=== PATIENT | female | born 1960 | race Asian ===

== ENCOUNTER 2016-04-02 13:48 | Emergency (ER) | payer SELFPAY ==
--- NOTE | 2016-04-02 18:46 | REP ---
Cervical spine seven views: There are superimposed artifact from meter ring is in from clothing artifacts in the air. The patient did not speak Barbadian, could not remain quiescent during the filming process and could not remove the body of the clothing artifacts. There is degenerative disc disease at C 05/06 and C6-7. Vertebral body heights and alignment are normal. The facets are unremarkable. The prevertebral soft soft tissues are unremarkable. There are calcifications in the arytenoid cartilages. There is no listhesis on flexion or extension. There is no bony foraminal encroachment. Impression: C5-6 and C6-7 degenerative disc disease. Signed by Darrius Mendes MD 04/02/2016 06:37 P
--- NOTE | 2016-04-02 18:49 | REP ---
Bilateral shoulders: There are no comparisons. Right shoulder three views : There is no fracture or dislocation. Mineralization and joint spaces are normal. There are no calcifications or foreign bodies. Impression: Negative right shoulder Left shoulder three views : There is no fracture or dislocation. Mineralization and joint spaces are normal. There are no calcifications or foreign bodies. Impression: Negative left shoulder . Signed by Darrius Mendes MD 04/02/2016 06:41 P
--- NOTE | 2016-04-02 19:13 | EDDOCDS ---
Physician Documentation [facility] Name: Jovanni Koch Age: 55 yrs Sex: Female : 1960 Arrival Date: 04/02/2016 Time: 13:48 Bed PD Private MD: NO PRIMARY PHYSICIAN, . Disposition: 04/02/16 18:59 Discharged to Home/Self Care. Impression: Cervical disc disorder with radiculopathy - AFFECTING BILATERAL SHOULDERS; C5-C7. - Condition is Stable. - Discharge Instructions: Cervical Radiculopathy. - Prescriptions for Prednisone 20 mg Oral Tablet - take 2 tablets by ORAL route once daily for 4 days TAKE EARLIER IN THE DAY, WITH FOOD.; 8 tablet. Cyclobenzaprine 5 mg Oral Tablet - take 1 tablet by ORAL route at bedtime As needed; 10 tablet. - Medication Reconciliation, Local Pharmacy Hours form. - Follow up: Emergency Department; When: As needed; Reason: Worsening of conditions. Follow [facility]: [facility]; When: Call to arrange an appointment; Reason: Recheck today's complaints, Continuance of care, To establish care. - Problem is new. - Symptoms are unchanged. Historical: - Allergies: no known allergies; - Home Meds: 1. naproxen 500 mg Oral TbEC 1 tab as needed (Last dose: 03/30/2016) - PMHx: none; - PSHx: none; - Social history: Smoking status: Patient states former smoker of tobacco. Preferred Language: Icelandic. - Family history: Not pertinent. - : The pt / caregiver states he / she is not on anticoagulants. Home medication list is obtained from. - Exposure Risk Screening:: None identified. Vital Signs: 04/02 13:51 BP 108 / 76; Pulse 83; Resp 18 S; Temp 96.7; Pulse Ox 98% on R/A; Weight 60.33 kg / 133 gr2 lbs (R); Height 5 ft. 5 in. (165.10 cm) (R); Pain 8/10; 16:58 BP 125 / 85; Pulse 72; Resp 16; Pulse Ox 98% on R/A; Pain 10/10; kr3 19:11 BP 110 / 75; Pulse 80; Resp 16; Temp 97(O); Pulse Ox 98% on R/A; jf3 13:51 Body Mass Index 22.13 (60.33 kg, 165.10 cm) gr2 MDM: 17:38 Shoulder, Complete Ordered. EDMS 17:39 Spine, Cervical Ordered. EDMS 17:41 Financial registration complete. gjb 17:42 [facility] Payment Agreement was scanned into [employer] and attached to record. juan f Signatures: Dispatcher [employer] EDEvelina Wolff RN RN [facility] Clary Skinner PA-C PAPaulette dt4 Lopez Flores RN RN jf3 Karen Young The chart was reviewed and I authenticate all verbal orders and agree with the evaluation and treatment provided.Attachments: 17:42 [facility] Payment Agreement gjb MTDD
--- NOTE | 2016-04-02 19:13 | EDDOCDS ---
Nurse's Notes [facility] Name: Jovanni Koch Age: 55 yrs Sex: Female : 1960 Arrival Date: 04/02/2016 Time: 13:48 Bed PD Private MD: NO PRIMARY PHYSICIAN, . Diagnosis: Cervical disc disorder with radiculopathy-AFFECTING BILATERAL SHOULDERS; C5-C7 Presentation: 04/02 14:12 Presenting complaint: Child states: left shoulder pain going into arm and hand with cjh joint pain in left hand, has pain on both sides but left side is more, going on for two months. Was seen in [facility] for same on 24 of March and put on Naproxen but it's not helping. She also has a headache for same amount of time. This patient has no additional risk factors. Adult Sepsis Screening: The patient does not have new or worsening altered mentation. Patient's respiratory rate is less than 22. Systolic blood pressure is greater than 100. Patient has a qSOFA score of 0- Negative Sepsis Screen. Suicide/Homicide risk assessment- the patient denies having any suicidal and/or homicidal ideations and does not present with any other emotional, behavioral or mental health complaints. Status: Patient is not a environmental services coordinator or dependent. Transition of care: patient was not received from another setting of care. 14:12 Acuity: DIEUDONNE Level 3 [facility] 14:12 Method Of Arrival: Walkin/Carried/Asstd [facility] Triage Assessment: 14:17 Headache History: Other chronic headache. General: Appears in no apparent distress, cjh comfortable, Behavior is appropriate for age, cooperative. Pain: Location: head and left arm Pain currently is 9 out of 10 on a pain scale. Pain began two months Aggravated by arm hurts worse while sleeping, head doesn't hurt right at this time Also complains of no other associated symptoms. Pt Declines HIV testing. Neurological: No deficits noted. Level of Consciousness is awake, alert, Oriented to person, place, time, Facial symmetry appears normal, Facial symmetry: tongue is midline. Respiratory: Airway is patent Respiratory effort is even, unlabored, Respiratory pattern is regular, symmetrical. Historical: - Allergies: no known allergies; - Home Meds: 1. naproxen 500 mg Oral TbEC 1 tab as needed (Last dose: 03/30/2016) - PMHx: none; - PSHx: none; - Social history: Smoking status: Patient states former smoker of tobacco. Preferred Language: Kiswahili. - Family history: Not pertinent. - : The pt / caregiver states he / she is not on anticoagulants. Home medication list is obtained from. - Exposure Risk Screening:: None identified. Screenin:00 Screening information is obtained from the patient. Fall risk: No risks identified. kr3 Assistance ADL's: requires no assistance with activities of daily living. Abuse/DV Screen: The patient / caregiver reports he/she is: not in a situation that causes fear, pain or injury. Nutritional screening: No deficits noted. Advance Directives: Currently, there is no health care proxy. home support is adequate. Assessment: 16:59 Reassessment: Patient appears in no apparent distress at this time. Pain: Location: kr3 'all joints' Pain currently is 10 out of 10 on a pain scale. Neurological: Level of Consciousness is awake, alert, Gait is steady. 19:11 Pain: Location: left shoulder. Neurological: Level of Consciousness is awake, alert. jf3 Cardiovascular: Capillary refill < 3 seconds. Respiratory: Airway is patent Respiratory effort is even, unlabored, Respiratory pattern is regular, symmetrical. Derm: Skin is normal. Vital Signs: 13:51 BP 108 / 76; Pulse 83; Resp 18 S; Temp 96.7; Pulse Ox 98% on R/A; Weight 60.33 kg (R); gr2 Height 5 ft. 5 in. (165.10 cm) (R); Pain 8/10; 16:58 BP 125 / 85; Pulse 72; Resp 16; Pulse Ox 98% on R/A; Pain 10/10; kr3 19:11 BP 110 / 75; Pulse 80; Resp 16; Temp 97(O); Pulse Ox 98% on R/A; jf3 13:51 Body Mass Index 22.13 (60.33 kg, 165.10 cm) gr2 Vitals: 13:51 Log In Time: April 02, 2016 at 13:51. gr2 ED Course: 13:50 Patient visited by Jose G Huizar. gr2 13:50 Patient moved to Waiting gr2 13:51 NO PRIMARY PHYSICIAN, . is Private Physician. gr2 13:52 Patient visited by Bhupendra, Gainslee. gr2 13:52 Patient moved to Pre RCE gr2 14:16 Triage Initiated cj 16:55 Patient moved to Triage 3 jc4 17:11 Cl[facility] Skinner [facility]-C [facility]. dt4 17:11 Brant Givens MD is Attending Physician. dt4 17:11 Patient visited by Clary Skinner PA-C. dt4 17:42 [facility] Payment Agreement was scanned into [employer] and attached to record. gjb 17:46 Patient moved to TR2 ld5 18:55 Patient moved to PD2 jf3 18:58 [facility] is Referral Physician. dt4 19:11 The patient / caregiver is instructed regarding the plan of care and ED course. jf3 19:11 No IV's were initiated during this patient's visit. No procedures done that require jf3 assistance. Order Results: There are currently no results for this order. Outcome: 18:59 Discharge ordered by Provider. dt4 19:12 Discharge Assessment: Patient awake, alert and oriented x 3. No cognitive and/or jf3 functional deficits noted. Patient verbalized understanding of disposition instructions. patient administered narcotics - no. The following High Risk Discharge criteria are identified: None. Discharged to home ambulatory, with family. Condition: good. Discharge instructions given to patient, family, Instructed on discharge instructions, follow up and referral plans. medication usage, Demonstrated understanding of instructions, medications, Pt was receptive of discharge instructions/ teaching. No special radiology studies were completed. Property :Personal belongings accompany Pt. 19:13 Patient left the ED. jf3 Signatures: Amanda Jensen,RN RN cr3 María Rodriguez RN RN ld5 Marium Virgen RN RN jc4 Evelina Ledbetter RN RN [facility] Jose G Huizar gr2 Clary Skinner PA-C PA-C dt4 Lopez Flores,RN RN byron3 Karen Young [facility] MTDD
--- NOTE | 2016-04-04 20:14 | EDDOCDS ---
Physician Documentation [facility] Name: Jovanni Koch Age: 55 yrs Sex: Female : 1960 Arrival Date: 04/02/2016 Time: 13:48 Bed PD Private MD: NO PRIMARY PHYSICIAN, . Disposition: 04/02/16 18:59 Discharged to Home/Self Care. Impression: Cervical disc disorder with radiculopathy - AFFECTING BILATERAL SHOULDERS; C5-C7. - Condition is Stable. - Discharge Instructions: Cervical Radiculopathy. - Prescriptions for Prednisone 20 mg Oral Tablet - take 2 tablets by ORAL route once daily for 4 days TAKE EARLIER IN THE DAY, WITH FOOD.; 8 tablet. Cyclobenzaprine 5 mg Oral Tablet - take 1 tablet by ORAL route at bedtime As needed; 10 tablet. - Medication Reconciliation, Local Pharmacy Hours form. - Follow up: Emergency Department; When: As needed; Reason: Worsening of conditions. Follow up: [facility]; When: Call to arrange an appointment; Reason: Recheck today's complaints, Continuance of care, To establish care. - Problem is new. - Symptoms are unchanged. Historical: - Allergies: no known allergies; - Home Meds: 1. naproxen 500 mg Oral TbEC 1 tab as needed (Last dose: 03/30/2016) - PMHx: none; - PSHx: none; - Social history: Smoking status: Patient states former smoker of tobacco. Preferred Language: Thai. - Family history: Not pertinent. - : The pt / caregiver states he / she is not on anticoagulants. Home medication list is obtained from. - Exposure Risk Screening:: None identified. Vital Signs: 04/02 13:51 BP 108 / 76; Pulse 83; Resp 18 S; Temp 96.7; Pulse Ox 98% on R/A; Weight 60.33 kg / 133 gr2 lbs (R); Height 5 ft. 5 in. (165.10 cm) (R); Pain 8/10; 16:58 BP 125 / 85; Pulse 72; Resp 16; Pulse Ox 98% on R/A; Pain 10/10; kr3 19:11 BP 110 / 75; Pulse 80; Resp 16; Temp 97(O); Pulse Ox 98% on R/A; jf3 13:51 Body Mass Index 22.13 (60.33 kg, 165.10 cm) gr2 MDM: 17:38 Shoulder, Complete Ordered. EDMS 17:39 Spine, Cervical Ordered. EDMS 17:41 Financial registration complete. b : [facility] Payment Agreement was scanned into [employer] and attached to record. b 04/03 15:22 T-Sheet-- Draft Copy was scanned into [employer] and attached to record. kf3 Signatures: Dispatcher [employer] EDMS Cirilo Pierce, Reg Reg kf3 Evelina Ledbetter,RN RN [facility] Clary Skinner PA-C PAPaulette dt4 Lopez FloresRN RN jf3 Karen Young [facility] The chart was reviewed and I authenticate all verbal orders and agree with the evaluation and treatment provided.Attachments: 04/02 17:42 [facility] Payment Agreement b 04/03 15:22 T-Sheet-- Draft Copy kf3 Chart Complete MTDD
--- NOTE | 2016-04-04 20:14 | EDDOCDS ---
Physician Documentation [facility] Name: Jovanni Koch Age: 55 yrs Sex: Female : 1960 Arrival Date: 04/02/2016 Time: 13:48 Bed PD Private MD: NO PRIMARY PHYSICIAN, . Disposition: 04/02/16 18:59 Discharged to Home/Self Care. Impression: Cervical disc disorder with radiculopathy - AFFECTING BILATERAL SHOULDERS; C5-C7. - Condition is Stable. - Discharge Instructions: Cervical Radiculopathy. - Prescriptions for Prednisone 20 mg Oral Tablet - take 2 tablets by ORAL route once daily for 4 days TAKE EARLIER IN THE DAY, WITH FOOD.; 8 tablet. Cyclobenzaprine 5 mg Oral Tablet - take 1 tablet by ORAL route at bedtime As needed; 10 tablet. - Medication Reconciliation, Local Pharmacy Hours form. - Follow up: Emergency Department; When: As needed; Reason: Worsening of conditions. Follow up: [facility]; When: Call to arrange an appointment; Reason: Recheck today's complaints, Continuance of care, To establish care. - Problem is new. - Symptoms are unchanged. Historical: - Allergies: no known allergies; - Home Meds: 1. naproxen 500 mg Oral TbEC 1 tab as needed (Last dose: 03/30/2016) - PMHx: none; - PSHx: none; - Social history: Smoking status: Patient states former smoker of tobacco. Preferred Language: Faroese. - Family history: Not pertinent. - : The pt / caregiver states he / she is not on anticoagulants. Home medication list is obtained from. - Exposure Risk Screening:: None identified. Vital Signs: 04/02 13:51 BP 108 / 76; Pulse 83; Resp 18 S; Temp 96.7; Pulse Ox 98% on R/A; Weight 60.33 kg / 133 gr2 lbs (R); Height 5 ft. 5 in. (165.10 cm) (R); Pain 8/10; 16:58 BP 125 / 85; Pulse 72; Resp 16; Pulse Ox 98% on R/A; Pain 10/10; kr3 19:11 BP 110 / 75; Pulse 80; Resp 16; Temp 97(O); Pulse Ox 98% on R/A; jf3 13:51 Body Mass Index 22.13 (60.33 kg, 165.10 cm) gr2 MDM: 17:38 Shoulder, Complete Ordered. EDMS 17:39 Spine, Cervical Ordered. EDMS 17:41 Financial registration complete. b : [facility] Payment Agreement was scanned into [employer] and attached to record. b 04/03 15:22 T-Sheet-- Draft Copy was scanned into [employer] and attached to record. kf3 Signatures: Dispatcher [employer] EDMS Cirilo Pierce, Reg Reg kf3 Evelina Ledbetter,RN RN [facility] Clary Skinner PA-C PAPaulette dt4 Lopez FloresRN RN jf3 Karen Young [facility] The chart was reviewed and I authenticate all verbal orders and agree with the evaluation and treatment provided.Attachments: 04/02 17:42 [facility] Payment Agreement b 04/03 15:22 T-Sheet-- Draft Copy kf3 Chart Complete MTDD
--- NOTE | 2016-04-04 20:14 | EDDOCDS ---
Nurse's Notes [facility] Name: Jovanni Koch Age: 55 yrs Sex: Female : 1960 Arrival Date: 04/02/2016 Time: 13:48 Bed PD Private MD: NO PRIMARY PHYSICIAN, . Diagnosis: Cervical disc disorder with radiculopathy-AFFECTING BILATERAL SHOULDERS; C5-C7 Presentation: 04/02 14:12 Presenting complaint: Child states: left shoulder pain going into arm and hand with cjh joint pain in left hand, has pain on both sides but left side is more, going on for two months. Was seen in [facility] for same on 24 of March and put on Naproxen but it's not helping. She also has a headache for same amount of time. This patient has no additional risk factors. Adult Sepsis Screening: The patient does not have new or worsening altered mentation. Patient's respiratory rate is less than 22. Systolic blood pressure is greater than 100. Patient has a qSOFA score of 0- Negative Sepsis Screen. Suicide/Homicide risk assessment- the patient denies having any suicidal and/or homicidal ideations and does not present with any other emotional, behavioral or mental health complaints. Status: Patient is not a director learning services or dependent. Transition of care: patient was not received from another setting of care. 14:12 Acuity: DIEUDONNE Level 3 [facility] 14:12 Method Of Arrival: Walkin/Carried/Asstd [facility] Triage Assessment: 14:17 Headache History: Other chronic headache. General: Appears in no apparent distress, cjh comfortable, Behavior is appropriate for age, cooperative. Pain: Location: head and left arm Pain currently is 9 out of 10 on a pain scale. Pain began two months Aggravated by arm hurts worse while sleeping, head doesn't hurt right at this time Also complains of no other associated symptoms. Pt Declines HIV testing. Neurological: No deficits noted. Level of Consciousness is awake, alert, Oriented to person, place, time, Facial symmetry appears normal, Facial symmetry: tongue is midline. Respiratory: Airway is patent Respiratory effort is even, unlabored, Respiratory pattern is regular, symmetrical. Historical: - Allergies: no known allergies; - Home Meds: 1. naproxen 500 mg Oral TbEC 1 tab as needed (Last dose: 03/30/2016) - PMHx: none; - PSHx: none; - Social history: Smoking status: Patient states former smoker of tobacco. Preferred Language: Georgian. - Family history: Not pertinent. - : The pt / caregiver states he / she is not on anticoagulants. Home medication list is obtained from. - Exposure Risk Screening:: None identified. Screenin:00 Screening information is obtained from the patient. Fall risk: No risks identified. kr3 Assistance ADL's: requires no assistance with activities of daily living. Abuse/DV Screen: The patient / caregiver reports he/she is: not in a situation that causes fear, pain or injury. Nutritional screening: No deficits noted. Advance Directives: Currently, there is no health care proxy. home support is adequate. Assessment: 16:59 Reassessment: Patient appears in no apparent distress at this time. Pain: Location: kr3 'all joints' Pain currently is 10 out of 10 on a pain scale. Neurological: Level of Consciousness is awake, alert, Gait is steady. 19:11 Pain: Location: left shoulder. Neurological: Level of Consciousness is awake, alert. jf3 Cardiovascular: Capillary refill < 3 seconds. Respiratory: Airway is patent Respiratory effort is even, unlabored, Respiratory pattern is regular, symmetrical. Derm: Skin is normal. Vital Signs: 13:51 BP 108 / 76; Pulse 83; Resp 18 S; Temp 96.7; Pulse Ox 98% on R/A; Weight 60.33 kg (R); gr2 Height 5 ft. 5 in. (165.10 cm) (R); Pain 8/10; 16:58 BP 125 / 85; Pulse 72; Resp 16; Pulse Ox 98% on R/A; Pain 10/10; kr3 19:11 BP 110 / 75; Pulse 80; Resp 16; Temp 97(O); Pulse Ox 98% on R/A; jf3 13:51 Body Mass Index 22.13 (60.33 kg, 165.10 cm) gr2 Vitals: 13:51 Log In Time: April 02, 2016 at 13:51. gr2 ED Course: 13:50 Patient visited by Jose G Huizar. gr2 13:50 Patient moved to Waiting gr2 13:51 NO PRIMARY PHYSICIAN, . is Private Physician. gr2 13:52 Patient visited by Bhupendra, Gainslee. gr2 13:52 Patient moved to Pre RCE gr2 14:16 Triage Initiated cjh 16:55 Patient moved to Triage 3 jc4 17:11 Clary Skinner PA-C is PHCP. dt4 17:11 Brant Givens MD is Attending Physician. dt4 17:11 Patient visited by Clary Skinner PA-C. dt4 17:42 [facility] [place] Agreement was scanned into [employer] and attached to record. gjb 17:46 Patient moved to TR2 ld5 18:55 Patient moved to PD2 / jf3 18:58 [facility] is Referral Physician. dt4 19:11 The patient / caregiver is instructed regarding the plan of care and ED course. jf3 19:11 No IV's were initiated during this patient's visit. No procedures done that require 3 assistance. 19:24 Spine, Cervical Returned. EDMS 19:25 Shoulder, Complete Returned. EDMS 04/03 15:22 T-Sheet-- Draft Copy was scanned into [employer] and attached to record. kf3 Order Results: Radiology Order: Shoulder, Complete Test: Shoulder, Complete REASON FOR EXAMINATION: bilat shoulder pain; Bilateral shoulders:; ; There are no comparisons.; ; ; ; Right shoulder three views :; ; There is no fracture or dislocation.; ; Mineralization and joint spaces are normal.; ; There are no calcifications or foreign bodies.; ; Impression:; ; Negative right shoulder; ; ; ; Left shoulder three views :; ; There is no fracture or dislocation.; ; Mineralization and joint spaces are normal.; ; There are no calcifications or foreign bodies.; ; Impression:; ; Negative left shoulder .; ; ; Signed by; Darrius Mendes MD 04/02/2016 06:41 P; Radiology Order: Spine, Cervical Test: Spine, Cervical REASON FOR EXAMINATION: bilat shoulder pain, neck pain; Cervical spine seven views:; ; There are superimposed artifact from meter ring is in from clothing artifacts in; the air.; ; The patient did not speak Vincentian, could not remain quiescent during the filming; process and could not remove the body of the clothing artifacts.; ; There is degenerative disc disease at C 05/06 and C6-7.; ; Vertebral body heights and alignment are normal. The facets are unremarkable.; The prevertebral soft soft tissues are unremarkable. There are calcifications in; the arytenoid cartilages.; ; There is no listhesis on flexion or extension.; ; There is no bony foraminal encroachment.; ; Impression:; ; C5-6 and C6-7 degenerative disc disease.; ; ; Signed by; Darrius Mendes MD 04/02/2016 06:37 P; Outcome: 04/02 18:59 Discharge ordered by Provider. dt4 19:12 Discharge Assessment: Patient awake, alert and oriented x 3. No cognitive and/or jf3 functional deficits noted. Patient verbalized understanding of disposition instructions. patient administered narcotics - no. The following High Risk Discharge criteria are identified: None. Discharged to home ambulatory, with family. Condition: good. Discharge instructions given to patient, family, Instructed on discharge instructions, follow up and referral plans. medication usage, Demonstrated understanding of instructions, medications, Pt was receptive of discharge instructions/ teaching. No special radiology studies were completed. Property :Personal belongings accompany Pt. 19:13 Patient left the ED. jf3 Signatures: Dispatcher [employer] EDMS Amanda Jensen,RN RN kr3 Cirilo Pierce, Reg Reg kf3 María Rodriguez,RN RN ld5 Marium Virgen RN RN jc4 Evelina Ledbetter,RN RN terrell Jose G Huizar gr2 Clary Skinner PA-C PA-C dt4 Lopez Flores,MIA RN jf3 Karen Young Chart Complete MTDD
== END 2016-04-02 19:13 | disposition home or self-care (01) ==
LOC: M ED 13:48
DX: M50.122 Cervical disc disorder at C5-C6 level with radiculopathy (principal); M50.123 Cervical disc disorder at C6-C7 level with radiculopathy; Z87.891 Personal history of nicotine dependence

== ENCOUNTER 2016-07-29 19:57 | Emergency (ER) | payer SELFPAY ==
[~2016-07-29] VITALS: Ht 157.5 cm; Wt 72.6 kg
[2016-07-29] MEDS ORDERED: IBUPROFEN 600 MG TAB PO ONE (21:30)
[2016-07-29] MEDS ORDERED: METHOCARBAMOL 500 MG TAB PO ONE (21:30)
[2016-07-29] MEDS ORDERED: predniSONE 20 MG TAB PO ONE (21:30)
[2016-07-29] MEDS ORDERED: PRED10TA PO (21:31)
[2016-07-29] MEDS ORDERED: ROBA500T PO (21:31)
[2016-07-29] MEDS ORDERED: IBUP600T26 PO (21:31)
[2016-07-29 21:37] VITALS: BP 123/86
== END 2016-07-29 22:16 | disposition home or self-care (01) ==
LOC: M ED 21:58
DX: M54.12 Radiculopathy, cervical region (principal)

== ENCOUNTER → 2016-08-16 | Outpatient (REF) | payer OTHER ==
[~2016-08-16] MED LIST: IBUP600T26 PO; PRED10TA PO; ROBA500T PO
[2016-08-16 12:24] LABS: ALBUMIN 3.4 GM/DL (3.2-5.2); ALBUMIN/GLOBULIN RATIO 0.83 (1.00-1.93); ALKALINE PHOSPHATASE 100 U/L (45-117); ALT/SGPT 31 U/L (12-78); ANION GAP 5 MEQ/L (8-16); AST/SGOT 14 U/L (15-37); BILIRUBIN,TOTAL 0.4 MG/DL (0.2-1.0); BLOOD UREA NITROGEN 11 MG/DL (7-18); CALCIUM LEVEL 9.5 MG/DL (8.5-10.1); CARBON DIOXIDE LEVEL 31 MEQ/L (21-32); CHLORIDE LEVEL 103 MEQ/L (98-107); CHOLESTEROL LEVEL 237 MG/DL (<200); CREATININE FOR GFR 0.61 MG/DL (0.55-1.02); GLOMERULAR FILTRATION RATE > 60.0 (>51); GLUCOSE, FASTING 77 MG/DL (70-105); POTASSIUM SERUM 4.2 MEQ/L (3.5-5.1); SODIUM LEVEL 139 MEQ/L (136-145); TOTAL PROTEIN 7.5 GM/DL (6.4-8.2); TRIGLYCERIDES LEVEL 177 MG/DL (<150)
== END ==
LOC: M SFHCPLAZ 09:10
PROVIDERS: ATTEND Family Medicine
DX: M54.12 Radiculopathy, cervical region (principal); Z13.1 Encounter for screening for diabetes mellitus; Z13.220 Encounter for screening for lipoid disorders

== ENCOUNTER 2018-02-13 13:35 | Emergency (ER) | payer SELFPAY ==
[2018-02-13 14:33] LABS: BASO % 0.3 % (0.0-1.0); EOS # 0.2 10^3/uL (0.0-0.50); EOS % 2.9 % (0.0-3.0); HEMATOCRIT 38.4 % (36.0-47.0); HEMOGLOBIN 12.7 g/dl (12.0-15.5); IMMATURE GRANULOCYTE % 0.4 % (0-3.0); LYMPH % 27.3 % (24.0-44.0); MEAN CORPUSCULAR HEMOGLOBIN 28.1 pg (27.0-33.0); MEAN CORPUSCULAR HGB CONC 33.1 g/dl (32.0-36.5); MONO # 0.7 10^3/uL (0.0-0.8); MONO % 9.2 % (0.0-5.0); NEUTROPHILS # 4.3 10^3/uL (1.8-7.7); NEUTROPHILS % 59.9 % (36.0-66.0); PLATELET COUNT, AUTOMATED 260 10^3/uL (150-450); RED BLOOD COUNT 4.52 10^6/uL (4.00-5.40); WHITE BLOOD COUNT 7.2 10^3/uL (4.0-10.0)
[2018-02-13 15:02] LABS: ALBUMIN 3.4 GM/DL (3.2-5.2); ALBUMIN/GLOBULIN RATIO 0.76 (1.00-1.93); ALKALINE PHOSPHATASE 106 U/L (45-117); ALT/SGPT 22 U/L (12-78); ANION GAP 7 MEQ/L (8-16); AST/SGOT 14 U/L (7-37); BILIRUBIN,DIRECT < 0.1 MG/DL (0.0-0.2); BILIRUBIN,TOTAL 0.3 MG/DL (0.2-1.0); BLOOD UREA NITROGEN 11 MG/DL (7-18); CALCIUM LEVEL 8.7 MG/DL (8.5-10.1); CARBON DIOXIDE LEVEL 29 MEQ/L (21-32); CHLORIDE LEVEL 103 MEQ/L (98-107); CK-MB VALUE MASS < 1.0 NG/ML (<3.6); CPK CREATINE PHOSPHOKINASE 81 U/L (26-192); CREATININE FOR GFR 0.77 MG/DL (0.55-1.30); GLOMERULAR FILTRATION RATE > 60.0 (>51); GLUCOSE, FASTING 125 MG/DL (70-100); LIPASE 248 U/L (73-393); MB/CK RELATIVE INDEX 1.23 (< OR =4); NT-PRO BNP 74 PG/ML (<125); POTASSIUM SERUM 3.7 MEQ/L (3.5-5.1); SODIUM LEVEL 139 MEQ/L (136-145); TOTAL PROTEIN 7.9 GM/DL (6.4-8.2); TROPONIN I < 0.02 NG/ML (< 0.10)
[2018-02-13] MEDS ORDERED: ISOVUE-370 76% 100ML VIAL (Q9967) As Ordered (15:28)
[2018-02-13 15:33] LABS: INR 0.86; PROTHROMBIN TIME 11.8 SECONDS (12.1-14.4)
[2018-02-13] MEDS: IPRATROPIUM 0.5MG/ALBUTEROL 2.5MG INH SOL UD 3ML (DUONEB)(J7620) NEB (15:45)
== END 2018-02-13 17:37 | disposition home or self-care (01) ==
LOC: M ED 13:35
DX: J20.9 Acute bronchitis, unspecified (principal); R07.89 Other chest pain; Z87.891 Personal history of nicotine dependence
CPT/HCPCS: Q9967